=== PATIENT | female | born 1945 | race Caucasian/White ===

== ENCOUNTER 2018-04-21 07:06 | Day surgery (SDC) | payer OTHER ==
[~2018-04-21 07:06] MED LIST: ATORVASTATIN CA40 MG PO; ZETIA10 MG PO
== END 2018-04-21 15:10 | disposition home or self-care (01) ==
LOC: CIR.AMB 07:06
DX: M75.122 Complete rotator cuff tear or rupture of left shoulder, not specified as traumatic (principal); S46.212A Strain of muscle, fascia and tendon of other parts of biceps, left arm, initial encounter; S46.812A Strain of other muscles, fascia and tendons at shoulder and upper arm level, left arm, initial encounter